=== PATIENT | female | born 1965 | race Caucasian/White ===

== ENCOUNTER → 2018-03-25 09:36 | Outpatient (CLI) | payer SELFPAY ==
--- NOTE | 2018-03-25 09:39 | DI.US.S_ITS ---
PROCEDURE: US ABDOMEN COMPLETE INDICATIONS: RUQ pain TECHNIQUE: Real-time scanning was performed of the abdominal and retroperitoneal organs, with image documentation. COMPARISON: None. FINDINGS: Liver: Liver is normal in size and homogeneous in echotexture. Gallbladder: Gallbladder is unremarkable. Wall thickness is within normal limits. Biliary ducts: Intrahepatic bile ducts are non-dilated. Extrahepatic bile duct caliber measures 6 mm. Normal is 6-7 mm or less in diameter, or 10 mm or less post-cholecystectomy. Pancreas: Not well-seen. Spleen: Spleen is normal in size and homogeneous in echotexture. Kidneys: Kidneys are normal in size and echotexture. Right kidney measures 11.1 cm long; left kidney measures 11.7 cm long. No hydronephrosis or nephrolithiasis. No solid masses. Aorta: Visualized aorta is normal in caliber at less than 3 cm. Iliacs: Proximal common iliac arteries are normal in caliber at less than 2.5 cm. IVC: Intrahepatic inferior vena cava is patent. Miscellaneous: No free abdominal fluid. IMPRESSION: 1. Unremarkable exam. Dictated by: Rosalina Billings M.D. on 03/25/2018 at 13:53 Approved by: Rosalina Billings M.D. on 03/25/2018 at 13:54
--- NOTE | 2018-03-25 09:39 | DI.RAD.S_ITS ---
PROCEDURE: XR KNEE LT 3V INDICATIONS: 52 year-old female with left knee pain. TECHNIQUE: 3 views of the knee were acquired. COMPARISON: None. FINDINGS: Bones: No fractures or dislocations. There is mild medial left knee joint degenerative narrowing. No suspicious bony lesions. Soft tissues: There is small joint effusion. No suspicious soft tissue calcifications. IMPRESSION: Mild medial left knee joint degeneration, as well as nonspecific small left knee joint effusion. Dictated by: Hardy Camarillo M.D. on 03/25/2018 at 10:01 Approved by: Hardy Camarillo M.D. on 03/25/2018 at 10:02
== END ==
PROVIDERS: PCP Physician Assistant; Visit Provider Physician Assistant
DX: R10.11 Right upper quadrant pain (principal); M17.12 Unilateral primary osteoarthritis, left knee; M25.562 Pain in left knee; M25.462 Effusion, left knee
CPT/HCPCS: 73562; 76700

== ENCOUNTER → 2018-09-27 15:49 | Outpatient (CLI) | payer OTHER, SELFPAY ==
[2018-09-27 16:47] LABS: Hemoglobin 11.2 g/dL (12.0-16.0)
[2018-09-27 16:57] LABS: HEMOLYSIS < 15 (0-50); Iron 32 ug/dL (37-170)
[2018-09-27 17:08] LABS: Percent Iron Saturation 7 % (15-50); Total Iron Binding Capacity 455 ug/dL (265-497); Transferrin 388 mg/dL (206-381)
[2018-09-27 17:34] LABS: Ferritin 5.5 ng/mL (11.1-264)
== END ==
PROVIDERS: PCP Physician Assistant; Visit Provider Physician Assistant
DX: D50.9 Iron deficiency anemia, unspecified (principal)
CPT/HCPCS: 36415; 82728; 83540; 83550; 85014; 85018

== ENCOUNTER → 2018-10-11 14:30 | Outpatient (CLI) | payer OTHER, SELFPAY ==
--- NOTE | 2018-10-11 14:35 | DI.RAD.S_ITS ---
PROCEDURE: XR LUMBAR SPINE MIN 4V INDICATIONS: Parasthesias of legs and arms;neck back pain TECHNIQUE: 5 views of the lumbar spine acquired. COMPARISON: None. FINDINGS: Bones: No fracture or focal osseous destruction. Diffuse endplate spurring and sclerosis. Grade 1 retrolisthesis of L1 on L2 and L2 on L3. Grade 1 anterolisthesis of L4 and L5. This appears grossly unchanged with lateral flexion and extension views. Diffuse facet arthropathy. Moderate narrowing of the L1-L2, and L5-S1 disc space and mild narrowing of the remaining lumbar disc spaces. Minimal dextrocurvature Soft tissues: Overlying bowel gas pattern is normal. No suspicious soft tissue calcifications. IMPRESSION: Multilevel lumbar disc degeneration. Most pronounced at L1-L2 and L5-S1 Spondylolistheses as above. No definite evidence of abnormal motion with flexion and extension lateral views Dictated by: Jacky Bell M.D. on 10/11/2018 at 16:43 Approved by: Jacky Bell M.D. on 10/11/2018 at 16:45
--- NOTE | 2018-10-11 14:35 | DI.RAD.S_ITS ---
PROCEDURE: XR CERVICAL SPINE 2V OR 3V INDICATIONS: Parasthesias of legs and arms;neck, back pain TECHNIQUE: 3 view(s) of the cervical spine were acquired. COMPARISON: None. FINDINGS: Bones: No fractures or dislocations to the C7 level. The lateral masses of C1 appear intact on the odontoid view. No suspicious bony lesions. Diffuse endplate spurring and sclerosis. Straightening of the normal cervical lordosis. Diffuse facet arthropathy. Moderate narrowing of the disc spaces from the level of C4-C7. Mild levocurvature Soft tissues: No prevertebral soft tissue swelling. IMPRESSION: Mild levocurvature. Moderate multilevel cervical disc degeneration from C4-C7. Diffuse facet arthropathy. Straightening of the normal cervical lordosis. Dictated by: Jacky Bell M.D. on 10/11/2018 at 16:42 Approved by: Jacky Bell M.D. on 10/11/2018 at 16:43
== END ==
PROVIDERS: Family Provider Physician Assistant; PCP Physician Assistant; Visit Provider Physician Assistant
DX: R29.898 Other symptoms and signs involving the musculoskeletal system (principal); R20.2 Paresthesia of skin; M50.321 Other cervical disc degeneration at C4-C5 level; M47.812 Spondylosis without myelopathy or radiculopathy, cervical region; M51.36 Other intervertebral disc degeneration, lumbar region; M51.37 Other intervertebral disc degeneration, lumbosacral region; M43.16 Spondylolisthesis, lumbar region
CPT/HCPCS: 72040; 72110

== ENCOUNTER → 2019-03-29 10:29 | Outpatient (CLI) | payer OTHER, SELFPAY ==
[2019-03-29 11:24] LABS: Hematocrit 40.8 % (36-46); Hemoglobin 13.4 g/dL (12.0-16.0)
[2019-03-29 11:56] LABS: Alanine Aminotransferase 22 IU/L (9-52); Albumin Globulin Ratio 1.2 (1.0-2.8); Alkaline Phosphatase 69 U/L (38-126); Aspartate Aminotransferase 27 IU/L (14-36); BUN Creatinine Ratio 12.5 (6-22); Bilirubin Total 0.7 mg/dL (0.2-1.3); Blood Urea Nitrogen 10 mg/dL (7-17); Calcium 9.5 mg/dL (8.4-10.2); Carbon Dioxide 27 mmol/L (22-32); Chloride 102 mmol/L (98-107); Cholesterol 187 mg/dL (140-199); Estimated Glomerular Filt Rate > 60.0 mL/min (>60); Globulin 3.4 g/dL (1.7-4.1); Glucose 100 mg/dL (70-100); HDL Cholesterol 50 mg/dL (40-60); HEMOLYSIS < 15 (0-50); Iron 43 ug/dL (37-170); LDL Cholesterol Calculated 118 mg/dL (<100); Potassium 4.5 mmol/L (3.4-5.1); Sodium 137 mmol/L (137-145); Total Protein 7.4 g/dL (6.3-8.2); Triglycerides 96 mg/dL (35-150)
[2019-03-29 12:06] LABS: Percent Iron Saturation 9 % (15-50); Total Iron Binding Capacity 458 ug/dL (265-497); Transferrin 351 mg/dL (206-381)
[2019-03-29 12:31] LABS: Ferritin 7.8 ng/mL (11.1-264)
== END ==
PROVIDERS: Family Provider Physician Assistant; PCP Physician Assistant; Visit Provider Physician Assistant
DX: D50.0 Iron deficiency anemia secondary to blood loss (chronic) (principal); N92.0 Excessive and frequent menstruation with regular cycle; R53.83 Other fatigue; Z13.220 Encounter for screening for lipoid disorders; Z13.6 Encounter for screening for cardiovascular disorders
CPT/HCPCS: 36415; 80053; 80061; 82728; 83540; 83550; 85014; 85018

== ENCOUNTER → 2019-06-20 12:16 | Outpatient (CLI) | payer OTHER, SELFPAY ==
--- NOTE | 2019-06-20 12:19 | DI.MG.S_ITS ---
BILATERAL DIGITAL SCREENING MAMMOGRAM 3D/2D WITH CAD: 06/20/2019 CLINICAL: Routine screening. Family history of breast cancer. Comparison is made to exams dated: 06/29/2017 mammogram, 03/21/2014 mammogram, and 01/18/2013 mammogram - [facility]. There are scattered fibroglandular elements in both breasts. Current study was also evaluated with a Computer Aided Detection (CAD) system. No significant masses, calcifications, or other findings are seen in either breast. There has been no significant interval change. IMPRESSION: NEGATIVE There is no mammographic evidence of malignancy. A 1 year screening mammogram is recommended. This exam was interpreted at Station ID: [id number]. NOTE: For mammograms, a report in lay terms will be sent to the patient. Approximately 15% of breast malignancies will not be visualized mammographically. In the management of a palpable breast mass, a negative mammogram must not discourage biopsy of a clinically suspicious lesion. Electronically Signed By: Bola gonsales/jesu:06/20/2019 16:19:28 letter sent: Normal Exam ACR BI-RADS Category 1: Negative 3341F
== END ==
PROVIDERS: PCP Physician Assistant; Visit Provider Physician Assistant
DX: Z12.39 Encounter for other screening for malignant neoplasm of breast (principal); Z80.3 Family history of malignant neoplasm of breast
CPT/HCPCS: 77063; 77067

== ENCOUNTER → 2020-09-03 12:12 | Outpatient (CLI) | payer OTHER, SELFPAY ==
--- NOTE | 2020-09-03 12:15 | DI.RAD.S_ITS ---
PROCEDURE: XR KNEE RT 3V INDICATIONS: right knee pain TECHNIQUE: 3 views of the knee were acquired. COMPARISON: None. FINDINGS: Bones: No fractures or dislocations. No suspicious bony lesions. Soft tissues: Small joint effusion. No suspicious soft tissue calcifications. IMPRESSION: Small knee joint effusion; otherwise no definite radiographic abnormality. If pain persists with conservative management, consider cross sectional imaging such as CT or MRI for further assessment. Dictated by: Hernan Hernandez [facility] Interpreted: Rosalina Billings MD on 09/03/2020 at 16:47 Approved by: Rosalina Billings M.D. on 09/03/2020 at 16:58
--- NOTE | 2020-09-03 12:15 | DI.US.S_ITS ---
PROCEDURE: US EXTREMITY NONVASC LOWER RT INDICATIONS: posterior knee stiffness; feels a bulb/something TECHNIQUE: Real-time scanning was performed of the right lower extremity, with image documentation. COMPARISON: None. FINDINGS: 4.7 x 2.5 x 2.1 centimeter cyst noted in the right popliteal fossa compatible with popliteal cyst. IMPRESSION: Right popliteal cyst. Dictated by: Renetta Phan MD, PhD on 09/03/2020 at 15:53 Approved by: Renetta Phan MD, PhD on 09/03/2020 at 15:53
== END ==
PROVIDERS: PCP Registered Nurse; Referring Provider Registered Nurse; Visit Provider Registered Nurse
DX: M25.661 Stiffness of right knee, not elsewhere classified (principal); M71.21 Synovial cyst of popliteal space [Baker], right knee; M25.461 Effusion, right knee
CPT/HCPCS: 73562; 76882

== ENCOUNTER → 2020-09-25 12:49 | Outpatient (CLI) | payer OTHER, SELFPAY ==
--- NOTE | 2020-09-25 12:50 | DI.US.S_ITS ---
PROCEDURE: US PERIPH VENOUS LOW EXTREM RT INDICATIONS: swelling of right lower ext. TECHNIQUE: Real-time imaging, as well as color and pulse Doppler interrogation, were performed of the lower extremity deep veins from the inguinal ligament to the popliteal fossa. COMPARISON: [facility], EXTREMITY NONVASC LOWER RT, 09/03/2020, 12:38. FINDINGS: The common femoral, femoral and popliteal veins are normally compressible, and free of intraluminal thrombus. Color and pulse Doppler demonstrate normal phasic intraluminal flow. There is normal augmentation response to distal compression maneuver. A popliteal cyst is again seen measuring 5.3 x 2 x 2.7 cm, which previously measured 4.7 x 2.5 x 2.1 cm. No abnormal vascularity can be seen of the cyst. IMPRESSION: Negative for deep venous thrombosis. Popliteal cyst again seen, which measures slightly larger on the current study than on the prior. Dictated by: Sage Shankar M.D. on 09/25/2020 at 12:35 Approved by: Sage Shankar M.D. on 09/25/2020 at 12:36
== END ==
PROVIDERS: PCP Registered Nurse; Referring Provider Registered Nurse; Visit Provider Registered Nurse
DX: M79.89 Other specified soft tissue disorders (principal); M71.21 Synovial cyst of popliteal space [Baker], right knee
CPT/HCPCS: 93971

== ENCOUNTER 2020-09-28 12:12 | Emergency (ER) | payer OTHER, SELFPAY ==
[2020-09-28 12:30] VITALS: BP 152/69; PULSE 78; RESP 17; TEMP 36.8; O2SAT 97; BMI 33.0
--- NOTE | 2020-09-28 12:43 | ED.EXTPRO ---
HPI - Extremity Problem <ANDREW Benjamin - Last Filed: 09/28/20 21:44> General Chief complaint: Extremity Problem,Nontraumatic Stated complaint: Rt leg swollen Time Seen by Provider: 09/28/20 12:22 Source: patient Mode of arrival: Ambulatory Limitations: no limitations History of Present Illness HPI Narrative: This is a 55 year female, nonsmoker, who has past medical history significant for depression, anxiety and Reina's cyst on right leg presents to ED with chief complain of discoloration and bruise on right lower extremity, swelling and discomfort. Patient recently had ultra sound test done on right extreme lower to rule out DVT 3 days ago indicating slightly increased Reina's cyst measuring 5.3 x 2 x 2.7 cm. Patient also had x-ray test and ultrasound test done a month prior to this indicating Reina's cyst measuring 4.7 x 2.5 x 2.1 cm and no other acute findings. Patient reports the swelling has improved and compartment feels softer but swelling has been moving down to lower leg. Patient woke up this morning to take a shower and look at her legs and had light yellowish discoloration in right lower leg with ecchymotic bruise on right inner ankle. She denies known trauma or injuries but states her big dog stepped on her but unsure where he landed. She also has some superficial varicose vein which was more prominent a couple of days ago with swelling in her calf region. Patient denies chest pain, difficulty breathing, fever, chills, nausea or vomiting. Patient denies warmth or redness to affected leg. Patient denies history of heart failure, blood clots, or easy bruising. Patient denies recent surgery, prolonged bed rest, cancer or tumor, using esterase in hormone replacement. Related Data Previous Rx's Medication Instructions Recorded sertraline 50 mg tablet 50 mg PO DAILY #90 tab 12/06/19 cetirizine 10 mg tablet 10 mg PO DAILY #30 tab 08/17/20 fluticasone propionate 50 2 spray NASAL DAILY #15.8 ml 08/17/20 mcg/actuation nasal spray,suspension ibuprofen 400 mg tablet 400 mg PO Q4-6H PRN 30 Days #120 09/27/20 tab Allergies Allergy/AdvReac Type Severity Reaction Status Date / Time Sulfa (Sulfonamide AdvReac Mild HYPER, Verified 09/28/20 12:44 Antibiotics) UNABLE TO SLEEP, ON EDGE Review of Systems <ANDREW Benjamin - Last Filed: 09/28/20 21:44> Review of Systems Narrative: General: Denies fever, chills, fatigue, malaise, sweats. Respiratory: Denies dyspnea, cough, wheezing, hemoptysis, sputum. Cardiovascular: Denies chest pain, palpitations, orthopnea, edema. Gastrointestinal: Denies nausea, vomiting, abdominal pain, diarrhea, constipation, melena. Musculoskeletal: See HPI Skin: See HPI Neurologic: Denies weakness, headache, numbness, change in speech, confusion, seizures, incoordination. Psychiatric: No concerning psychosocial issues. Patient History <ANDREW Benjamin - Last Filed: 09/28/20 21:44> Medical History (Updated 09/28/20 @ 13:56 by ANDREW Benjamin) Depression with anxiety (Unknown) Fractured tooth Hyperlipidemia (Unknown) Osteoarthritis of knee Family History Mother Alzheimer's dementia Sister Age: 70 Breast cancer Alzheimer's dementia Social History Smoking Status: Never smoker second hand exposure: No alcohol intake: current (wine or mixed drinks once a month. It's more of a social thing.) substance use type: does not use Smoking Status: Never smoker Exam <ANDREW Benjamin - Last Filed: 09/28/20 21:44> Narrative Exam Narrative: GEN: Alert, oriented x 3, well appearing and nourished, and in no acute distress. Head: Normal cephalic, atraumatic. No scalp or temporal tenderness, palpable mass or rash. EYES: Pupils are equal, round, and reactive to light and accommodation. Extraocular muscles are intact bilaterally. There is no subconjunctival hemorrhage, exudate and sclera non-icteric. ENT: Hearing grossly intact. Airway patent. Neck: Trachea in midline. No JVD, non-tender without lymphadenopathy. No masses or thyroid megaly. Supple, non-tender and no meningeal signs. CARDIAC: Normal regular rate and rhythm without murmurs, gallops, or rubs. No chest wall tenderness. No peripheral edema, cyanosis or pallor. Capillary refill is less than 2 seconds. RESPIRATORY: Lungs are clear to auscultate bilaterally. No cough, wheezes, rales, or rhonchi. No stridor, respiratory distress, increase work of breathing, or accessary muscle used. ABD: Abdomen soft, nontender and non-distended. No guarding or rebound tenderness to palpate. Bowel sounds are normal in all 4 quadrants. There is no palpable masses or organomegaly. EXT: Light yellow discoloration extending right lower extremity below knee and small area of ecchymotic bruise in right inner ankle. No erythema, hot to touch on right lower leg. Slight tenderness to palpate right calf. No significant swelling and calf compartments soft to palpate. Intact sensation, mobility, brisk cap refill, pedal pulse distal to right foot. Full painless ROM of all extremities. No effusion, warmth, tenderness to palpate on right knee. SKIN: See extremity. Warm, dry, normal color for patient. No erythema, lesions or rash over visible areas. NEUROLOGICAL: Alert and oriented to place, time and person. Sensation and motor function intact bilaterally. No facial droops, dysphasia. PSYCHIATRIC: Good judgement and reason, without hallucinations, abnormal affect or abnormal behaviors during the examination. Patient is not suicidal. Initial Vital Signs Initial Vital Signs: Vital Signs Temperature 98.2 F 09/28/20 12:30 Pulse Rate 78 09/28/20 12:30 Respiratory Rate 17 09/28/20 12:30 Blood Pressure 152/69 H 09/28/20 12:30 Pulse Oximetry 97 09/28/20 12:30 <Sadia Biggs MD - Last Filed: 10/05/20 07:23> Initial Vital Signs Initial Vital Signs: Vital Signs Temperature 98.2 F 09/28/20 12:30 Pulse Rate 78 09/28/20 12:30 Respiratory Rate 17 09/28/20 12:30 Blood Pressure 152/69 H 09/28/20 12:30 Pulse Oximetry 97 09/28/20 12:30 Scores <ANDREW Benjamin - Last Filed: 09/28/20 21:44> GCS [place] coma scale eye opening: Spontaneous [place] coma scale verbal response: Orientated [place] coma scale motor response: Obey commands [place] coma scale total score: 15 Wells' Criteria for DVT Active Cancer (Treatment within 6 months): No Bedridden recently >3 days or major surgery within 4 weeks: No Calf Swelling >3cm compared to other leg: No Collateral (nonvericose) superficial veins present: No Entire leg swollen: No Localized tenderness along the deep vein system: Yes Pitting edema, confined to symtomatic leg: Yes (+1) Paralysis, paresis, or recent plaster immobilization of ext: No Previously documented DVT: No Alternative dx to DVT as likely or more likely: No Wells' criteria for DVT: 2 Course <ANDREW Benjamin - Last Filed: 09/28/20 21:44> Orders Ordered: ED Orders 09/28/20 13:10 Basic Metabolic Panel Stat Complete Blood Count AUTO DIFF Stat D Dimer Stat Vital Signs Vital signs: Vital Signs - 8 hr 09/28/20 14:03 Pulse Rate 65 Respiratory Rate 16 Blood Pressure 119/56 L Pulse Oximetry 96 <Sadia Biggs MD - Last Filed: 10/05/20 07:23> Orders Ordered: ED Orders 09/28/20 13:10 Basic Metabolic Panel Stat Complete Blood Count AUTO DIFF Stat D Dimer Stat Vital Signs Vital signs: Vital Signs - 8 hr 09/28/20 14:03 Pulse Rate 65 Respiratory Rate 16 Blood Pressure 119/56 L Pulse Oximetry 96 MDM - Extremity (Nontraumatic) <DEVANTE BenjaminP - Last Filed: 09/28/20 21:44> Differential Diagnosis Differential diagnosis: Likely cellulitis, superficial thrombophlebitis, deep vein thrombosis of lower extremity and other (CHF, ruptured reina's cyst) Medical Records Attestation: I reviewed the patient's medical records. Lab Data Attestation: I reviewed the patient's lab results. Result diagrams: 09/28/20 13:10 09/28/20 13:10 Labs: Lab Results 09/28/20 09/28/20 09/28/20 Range/Units 13:10 13:10 13:10 WBC 7.6 (4.5-11.0) X10^3/uL RBC 4.99 (4.0-5.2) X10^6/uL Hgb 13.0 (12.0-16.0) g/dL Hct 39.7 (36-46) % MCV 79.6 L (80-100) fL MCH 26.0 (26-34) PG MCHC 32.7 (30-36) % RDW 14.7 (11.6-14.8) % Plt Count 272 (150-400) X10^3/uL Neut % (Auto) 58.9 (50-75) % Lymph % (Auto) 30.4 (25-40) % Bacon % (Auto) 7.5 (3-14) % Eos % (Auto) 2.1 (2-4) % Baso % (Auto) 1.1 (0-2) % Neut # (Auto) 4500 (4843-0820) /uL Lymph # (Auto) 2300 (5134-7105) /uL Bacon # (Auto) 600 (0-900) /uL Eos # (Auto) 200 (0-450) /uL Baso # (Auto) 100 (0-100) /uL D-Dimer 277 H (<230) ng/mL Sodium 135 L (137-145) mmol/L Potassium 3.6 (3.4-5.1) mmol/L Chloride 103 (98-107) mmol/L Carbon Dioxide 29 (22-32) mmol/L BUN 9 (7-17) mg/dL Creatinine 0.79 (0.52-1.04) mg/dL Estimated GFR > 60.0 (>60) mL/min BUN/Creatinine Ratio 11.4 (6-22) Glucose 99 (70-100) mg/dL Calcium 9.1 (8.4-10.2) mg/dL [facility] Narrative Medical decision making narrative: This is a 55 year female who has known prominent Reina's cyst on right knee according to 2 ultrasound tests done on 09/03/20 and 3 days ago presents to ED with chief complain of yellowish discoloration and small bruise on affected leg. Patient is afebrile, nontoxic appearing and with normal limits of heart rate with blood pressure. Leg pain is not worsening but swelling to affected leg has improved but now it has moved to lower leg. Wells criteria for DVT score is 2. Given the the patient had ultrasound test done 3 days ago with negative result, elected to screen patient with D-dimer, CBC and platelet count checks with basic chemistry. Normal platelet counts of 272. D-dimer is negative for age adjusted as 277. No repeat ultrasound test done at this time. The yellow discoloration and ankle bruise could be from Reina's cyst rupture vs. Varicose vein rupture. Patient informed discoloration male last for few weeks to completely resolve. Patient advised to follow-up with primary care physician to discuss about work release. Advised to use jay wrap as needed for support and return precautions discussed with patient. <Sadia Biggs MD - Last Filed: 10/05/20 07:23> Lab Data Labs: Lab Results 09/28/20 09/28/20 09/28/20 Range/Units 13:10 13:10 13:10 WBC 7.6 (4.5-11.0) X10^3/uL RBC 4.99 (4.0-5.2) X10^6/uL Hgb 13.0 (12.0-16.0) g/dL Hct 39.7 (36-46) % MCV 79.6 L (80-100) fL MCH 26.0 (26-34) PG MCHC 32.7 (30-36) % RDW 14.7 (11.6-14.8) % Plt Count 272 (150-400) X10^3/uL Neut % (Auto) 58.9 (50-75) % Lymph % (Auto) 30.4 (25-40) % Bacon % (Auto) 7.5 (3-14) % Eos % (Auto) 2.1 (2-4) % Baso % (Auto) 1.1 (0-2) % Neut # (Auto) 4500 (5201-5795) /uL Lymph # (Auto) 2300 (3314-7127) /uL Bacon # (Auto) 600 (0-900) /uL Eos # (Auto) 200 (0-450) /uL Baso # (Auto) 100 (0-100) /uL D-Dimer 277 H (<230) ng/mL Sodium 135 L (137-145) mmol/L Potassium 3.6 (3.4-5.1) mmol/L Chloride 103 (98-107) mmol/L Carbon Dioxide 29 (22-32) mmol/L BUN 9 (7-17) mg/dL Creatinine 0.79 (0.52-1.04) mg/dL Estimated GFR > 60.0 (>60) mL/min BUN/Creatinine Ratio 11.4 (6-22) Glucose 99 (70-100) mg/dL Calcium 9.1 (8.4-10.2) mg/dL Discharge Plan Departure Patient Disposition: Home Clinical Impression: Reina's cyst of knee Qualifiers: Laterality: right Qualified Code(s): M71.21 - Synovial cyst of popliteal space [Reina], right knee Superficial bruising of lower leg Qualifiers: Encounter type: initial encounter Laterality: right Qualified Code(s): S80.11XA - Contusion of right lower leg, initial encounter Instructions: DI for Reina Cyst, DI for Leg Pain Activity Restrictions/Additional Instructions: You have been diagnosed with [known right knee Reina's cyst per ultrasound on 09/25/20 and light superficial bruise on right lower extremity. The ecchymosis, improved swelling might've from ruptured Reina's cyst. Blood test and physical exam are not consistent with blood clots, cellulitis, abnormal blood clotting factors.]. What to do: *Take your medications as directed. You can take resv-[id number]-[id number] Tylenol and or Motrin as needed for discomfort. You can use Jay wrap as needed for comfort. *Follow up with your primary care provider in 2-3 days, call for an appointment. Let them know you were seen in the ED and that we asked you to be seen in follow up. *Return to ED if you have any new, worsening, or concerning symptoms, such as [worsening pain, tingling/numbness/weakness to affected leg, worsening redness/warmth/swelling to affected leg, chest pain, breathing difficulty, fever, or any acute concerns]. Prescriptions: No Action fluticasone propionate 50 mcg/actuation spray,suspension 2 spray NASAL DAILY Qty: 15.8 RF: 0 cetirizine [Allergy Relief (cetirizine)] 10 mg tablet 10 mg PO DAILY Qty: 30 RF: 0 ibuprofen 400 mg tablet 400 mg PO Q4-6H PRN (Reason: Reina cyst) 30 Days Qty: 120 RF: 0 sertraline 50 mg tablet 50 mg PO DAILY Qty: 90 RF: 3 Referrals: Eric Brunner ARNP [Primary Care Provider] - <Sadia Biggs MD - Last Filed: 10/05/20 07:23> Cosign ED Attending Cosignature Attestation: I was immediately available in the department for consultation throughout this patient's visit. I agree with documentation as above. Sadia Bigsg MD
[2020-09-28 13:31] LABS: BUN Creatinine Ratio 11.4 (6-22); Blood Urea Nitrogen 9 mg/dL (7-17); Calcium 9.1 mg/dL (8.4-10.2); Carbon Dioxide 29 mmol/L (22-32); Chloride 103 mmol/L (98-107); D Dimer 277 ng/mL (<230); Estimated Glomerular Filt Rate > 60.0 mL/min (>60); Glucose 99 mg/dL (70-100); HEMOLYSIS < 15 (0-50); Potassium 3.6 mmol/L (3.4-5.1); Sodium 135 mmol/L (137-145)
[2020-09-28 13:33] LABS: Add Manual Diff / Slide Review NO; Basophils Absolute Auto 100 /uL (0-100); Basophils Percent Auto 1.1 % (0-2); Eosinophils Absolute Auto 200 /uL (0-450); Eosinophils Percent Auto 2.1 % (2-4); Hematocrit 39.7 % (36-46); Lymphocytes Absolute Auto 2300 /uL (1100-4500); Lymphocytes Percent Auto 30.4 % (25-40); Mean Corpuscular HGB Conc 32.7 % (30-36); Mean Corpuscular Volume 79.6 fL (80-100); Monocytes Absolute Auto 600 /uL (0-900); Monocytes Percent Auto 7.5 % (3-14); Neutrophils Absolute Auto 4500 /uL (1500-7000); Neutrophils Percent Auto 58.9 % (50-75); Platelet Count 272 X10^3/uL (150-400); Red Blood Cell Count 4.99 X10^6/uL (4.0-5.2); Red Cell Distribution Width 14.7 % (11.6-14.8); White Blood Cell Count 7.6 X10^3/uL (4.5-11.0)
[2020-09-28 14:03] VITALS: BP 119/56; PULSE 65; RESP 16; O2SAT 96
== END 2020-09-28 14:04 | disposition home or self-care (01) ==
PROVIDERS: Emergency Provider Nurse Practitioner Family; PCP Registered Nurse
DX: M71.21 Synovial cyst of popliteal space [Baker], right knee (principal); S80.11XA Contusion of right lower leg, initial encounter; F41.9 Anxiety disorder, unspecified
CPT/HCPCS: 36415; 80048; 85025; 85379; 99283

== ENCOUNTER → 2021-01-18 14:12 | Outpatient (CLI) | payer OTHER, SELFPAY ==
[2021-01-18 15:01] LABS: COVID19 -Nasal RAPID Negative (Negative)
== END ==
PROVIDERS: PCP Registered Nurse; Visit Provider Physician Assistant
DX: Z20.822 Contact with and (suspected) exposure to COVID-19 (principal)
CPT/HCPCS: 87635

== ENCOUNTER → 2021-06-02 11:42 | Outpatient (CLI) | payer OTHER, SELFPAY ==
[2021-06-02 15:44] LABS: COVID19 -Nasal RAPID Negative (Negative)
== END ==
PROVIDERS: PCP Registered Nurse; Visit Provider Nurse Practitioner
DX: Z20.822 Contact with and (suspected) exposure to COVID-19 (principal); R11.2 Nausea with vomiting, unspecified; R19.7 Diarrhea, unspecified
CPT/HCPCS: 87635

== ENCOUNTER → 2021-11-04 12:32 | Outpatient (CLI) | payer OTHER, SELFPAY ==
[2021-11-04 16:01] LABS: COVID19 -Nasal RAPID Negative (Negative)
== END ==
PROVIDERS: PCP Registered Nurse; Referring Provider Nurse Practitioner Family; Visit Provider Nurse Practitioner Family
DX: Z20.822 Contact with and (suspected) exposure to COVID-19 (principal); R05.9 Cough, unspecified
CPT/HCPCS: 87635

== ENCOUNTER → 2022-08-06 11:28 | Outpatient (CLI) | payer OTHER, MEDICAID, SELFPAY ==
[2022-08-06 12:38] LABS: Add Manual Diff / Slide Review NO; Basophils Absolute Auto 100 /uL (0-100); Basophils Percent Auto 0.9 % (0-2); Eosinophils Absolute Auto 100 /uL (0-450); Eosinophils Percent Auto 1.9 % (2-4); Hematocrit 41.3 % (36-46); Hemoglobin 14.1 g/dL (12.0-16.0); Lymphocytes Absolute Auto 2300 /uL (1100-4500); Lymphocytes Percent Auto 33.5 % (25-40); Mean Corpuscular HGB Conc 34.1 % (30-36); Mean Corpuscular Hemoglobin 26.7 PG (26-34); Mean Corpuscular Volume 78.2 fL (80-100); Monocytes Absolute Auto 400 /uL (0-900); Neutrophils Absolute Auto 3900 /uL (1500-7000); Neutrophils Percent Auto 57.7 % (50-75); Platelet Count 227 X10^3/uL (150-400); Red Blood Cell Count 5.28 X10^6/uL (4.0-5.2); Red Cell Distribution Width 13.6 % (11.6-14.8); White Blood Cell Count 6.8 X10^3/uL (4.5-11.0)
[2022-08-06 12:44] LABS: Alanine Aminotransferase 17 IU/L (<35); Albumin 4.3 g/dL (3.5-5.0); Albumin Globulin Ratio 1.3 (1.0-2.8); Alkaline Phosphatase 80 U/L (38-126); Aspartate Aminotransferase 25 IU/L (14-36); BUN Creatinine Ratio 11.4 (6-22); Bilirubin Total 0.7 mg/dL (0.2-1.3); Blood Urea Nitrogen 10 mg/dL (7-17); Calcium 9.6 mg/dL (8.4-10.2); Carbon Dioxide 30 mmol/L (22-32); Chloride 99 mmol/L (98-107); Cholesterol 244 mg/dL (140-199); Estimated Glomerular Filt Rate > 60 mL/min (>60); Globulin 3.4 g/dL (1.7-4.1); Glucose 92 mg/dL (70-100); HDL Cholesterol 57 mg/dL (40-60); HEMOLYSIS < 15 (0-50); LDL Cholesterol Calculated 149 mg/dL (<100); Potassium 4.2 mmol/L (3.4-5.1); Sodium 138 mmol/L (137-145); Total Protein 7.7 g/dL (6.3-8.2); Triglycerides 191 mg/dL (35-150)
[2022-08-06 12:55] LABS: Free T3, Triiodothyronine Free 3.71 pg/mL (2.77-5.27); Free T4, Direct Thyroxine 1.04 ng/dL (0.78-2.19)
[2022-08-06 13:09] LABS: Thyroid Stimulating Hormone 2.88 uIU/mL (0.47-4.68)
== END ==
PROVIDERS: PCP Nurse Practitioner; Referring Provider Nurse Practitioner; Visit Provider Nurse Practitioner
DX: Z00.00 Encounter for general adult medical examination without abnormal findings (principal); D50.0 Iron deficiency anemia secondary to blood loss (chronic); F41.8 Other specified anxiety disorders
CPT/HCPCS: 36415; 80053; 80061; 84439; 84443; 84481; 85025

== ENCOUNTER → 2022-08-20 16:25 | Outpatient (CLI) | payer OTHER, MEDICAID, SELFPAY ==
--- NOTE | 2022-08-20 16:29 | DI.MG.S_ITS ---
BILATERAL DIGITAL SCREENING MAMMOGRAM 3D/2D WITH CAD: 08/20/2022 CLINICAL: Routine screening. Family history of breast cancer. Comparison is made to exams dated: 06/20/2019 mammogram, 06/29/2017 mammogram, and 03/21/2014 mammogram - [facility]. Both breasts are almost entirely fatty (category a/<25% glandular tissue). Current study was also evaluated with a Computer Aided Detection (CAD) system. There are benign vascular calcifications in both breasts. No significant masses, calcifications, or other findings are seen in either breast. There has been no significant interval change. IMPRESSION: BENIGN There is no mammographic evidence of malignancy. A 1 year screening mammogram is recommended. Based on the Tyrer Cuzick model (a risk assessment model) the patient's lifetime risk is 10.8% and her 10 year risk is 4.2%. According to the ACR, ACS, and NCCN guidelines, an annual breast MRI exam along with mammogram is recommended if the patient's lifetime risk is 20% or greater. This exam was interpreted at Station ID: [id number]. NOTE: For mammograms, a report in lay terms will be sent to the patient. Approximately 15% of breast malignancies will not be visualized mammographically. In the management of a palpable breast mass, a negative mammogram must not discourage biopsy of a clinically suspicious lesion. Electronically Signed By: Georgiana edwards/jesu:08/21/2022 09:00:50 letter sent: Normal Exam ACR BI-RADS Category 2: Benign Finding(s) 3342F
== END ==
PROVIDERS: PCP Nurse Practitioner; Referring Provider Nurse Practitioner; Visit Provider Nurse Practitioner
DX: Z12.31 Encounter for screening mammogram for malignant neoplasm of breast (principal); Z80.3 Family history of malignant neoplasm of breast
CPT/HCPCS: 77063; 77067

== ENCOUNTER → 2022-10-05 14:05 | Outpatient (CLI) | payer OTHER, MEDICAID, SELFPAY ==
[2022-10-05 18:07] LABS: COVID19 -Nasal RAPID Negative (Negative)
== END ==
PROVIDERS: PCP Nurse Practitioner; Visit Provider Surgery
DX: Z01.812 Encounter for preprocedural laboratory examination (principal); Z20.822 Contact with and (suspected) exposure to COVID-19
CPT/HCPCS: 87635; C9803

== ENCOUNTER 2022-10-06 13:03 | Day surgery (SDC) | payer OTHER, MEDICAID, SELFPAY ==
--- NOTE | 2022-10-06 | PATH_ITS ---
[facility] Accession Number: [id number] . 01 Material submitted: . colon - SIGMOID COLON POLYP . 01 Diagnosis: Sigmoid Colon Polyp, Biopsy: Colonic mucosa with benign lymphoid aggregate. No dysplasia or neoplasia identified. [facility] 10/09/2022 1418 Local . 01 Electronically signed: . Galilea Callejas MD, Pathologist NPI- [id number] . 01 Gross description: . SIGMOID COLON POLYP: Received in formalin are 2 fragment(s) of jaramillo, soft tissue measuring 0.1 x 0.1 x 0.1 cm to 0.4 x 0.2 x 0.2 cm which is bisected and submitted entirely in 1 cassette(s) /MASON 10/07/2022 193 Local . 01 Pathologist provided ICD-10: K63.89 . 01 CPT . 042685 Specimen Comment: A courtesy copy of this report has been sent to [phone] Performed at: 01 [facility] [address] [place] [address] Suite [facility], [place], [place] [id number] MD Bola Bob MD Phone: [phone]
[2022-10-06 13:26] VITALS: BP 176/106; PULSE 75; RESP 18; TEMP 36.7; O2SAT 100; BMI 29.0
--- NOTE | 2022-10-06 13:28 | PM.HP.1 ---
History of Present Illness History of Present Illness Date Patient Seen: 10/06/22 Time Patient Seen: 13:28 Chief complaint: Colonoscopy Narrative: The patient presents for colorectal screening. Ten years ago colonoscopy normal. Unclear whether her father had colon cancer or not.. On further history denies any recent gastrointestinal symptoms. No nausea, vomiting, abdominal pain, loss of appetite, unexplained weight loss, change in bowel habits, diarrhea, constipation, melena, hematochezia, or bright red blood per rectum. Patient History Medical History Depression with anxiety (Unknown) Fractured tooth Hyperlipidemia (Unknown) Osteoarthritis of knee Family & Social History Family History Mother Alzheimer's dementia Sister Age: 72 Breast cancer Alzheimer's dementia Tobacco & Substance use: Smoking Status Never smoker alcohol intake current alcohol intake frequency holiday/special occasion Substance Use Type does not use Meds Home Medications and Allergies Home Medications Medication Instructions Recorded Confirmed Type sertraline 50 mg tablet 50 mg PO DAILY 10/06/22 10/06/22 History Allergies Allergy/AdvReac Type Severity Reaction Status Date / Time Sulfa (Sulfonamide AdvReac Mild HYPER, Verified 10/06/22 13:16 Antibiotics) UNABLE TO SLEEP, ON EDGE Exam Narrative Exam Narrative: General adult woman alert oriented no acute distress Extremities warm well perfused Assessment & Plan Assessment & Plan narrative: The patient requires colorectal screening and colonoscopy is recommended. Technical details were discussed. Risks, benefits, alternatives explained. Risks including but not limited to myocardial infarction, aspiration, bleeding, pain, missed lesion, incomplete examination, need for further radiographic studies, colonic perforation, and need for major abdominal surgery were discussed. All questions were answered to their satisfaction, and they are in agreement with this plan. Time Spent With Patient Critical Care time: I spent a total of [] minutes of critical care time on this patient's care today; this time is exclusive of procedural time.
--- NOTE | 2022-10-06 13:29 | P.OP.COLON_ITS ---
Operative Date/Time/Diagnoses Date of procedure: 10/06/22 Time of procedure: 13:30 Pre-op diagnosis: Colorectal screening Post-op diagnosis: same Procedure & Clinicians Study performed: Colonoscopy and polypectomy Same procedure as scheduled: Yes Indications: Screening Surgeon: Dillan Parra Procedure Notes Procedure in detail: The history and physical was performed/updated and the patient is ASA class is 2. The procedure was discussed in detail with the patient. Potential risks complications including infection, bleeding, missed diagnosis, perforation, need for surgery, and were explained. Their questions were answered and inf ormed consent was obtained. Patient was brought to the procedure room and placed standard monitoring equipment. The patient's vital signs were monitored continuously throughout the entire procedure. Prior to starting time-out was performed. The patient was placed in the left lateral recumbent position. Procedural sedation was administered by anesthesia. Examination began with a thorough inspection of the perianal area there was no evidence of fissures, fistulae, external hemorrhoids or cutaneous malignancy. The colonoscopy scope was then placed into the anal canal and was advanced to the cecum, which was identified by the ileocecal valve, the appendiceal orifice and the confluence of the taenia. The scope was then slowly withdrawn examining colon thoroughly in all directions, irrigating it of any residual stool. FINDINGS 1. Sigmoid. 3mm polyps x 2 removed with biopsy forceps 2. Diverticulosis The patient tolerated the procedure well. They will be discharged once criteria are met. The prep was of good/excellent quality. The withdrawl time was 6 minutes. Specimen(s): other (Sigmoid colonic polyps) Impression: Colonic polyps Post-procedure Recommendations: High fiber diet Plan for aftercare: Follow-up dependent on pathology findings Disposition: same day surgery
[2022-10-06] MEDS: LACTATED RINGERS 1,000 ML 200 ML IV (13:31)
[2022-10-06 13:52] VITALS: BP 123/80; PULSE 68; RESP 16; TEMP 36.5; O2SAT 95
[2022-10-06 13:57] VITALS: BP 112/82; PULSE 67; RESP 13; O2SAT 96
[2022-10-06 14:02] VITALS: BP 117/78; PULSE 71; RESP 10; TEMP 36.6; O2SAT 98
[2022-10-06 14:07] VITALS: BP 140/88; PULSE 69; RESP 13; O2SAT 99
[2022-10-06 14:12] VITALS: BP 144/91; PULSE 64; RESP 13; TEMP 36.5; O2SAT 99
== END 2022-10-06 14:36 | disposition home or self-care (01) ==
PROVIDERS: PCP Nurse Practitioner; Referring Provider Surgery; Visit Provider Surgery
PROC: 0DJD8ZZ Inspection of Lower Intestinal Tract, Via Natural or Artificial Opening Endoscopic (ICD-10-PCS; CPT 45378; principal; 2022-10-06 14:00)
DX: Z12.11 Encounter for screening for malignant neoplasm of colon (principal); K57.30 Diverticulosis of large intestine without perforation or abscess without bleeding
CPT/HCPCS: 45380; J2704; J3010

== ENCOUNTER → 2023-09-01 10:07 | Outpatient (CLI) | payer OTHER, MEDICAID, SELFPAY ==
--- NOTE | 2023-09-01 10:08 | DI.MG.S_ITS ---
BILATERAL DIGITAL SCREENING MAMMOGRAM 3D/2D WITH CAD: 09/01/2023 CLINICAL: Routine screening. Family history of breast cancer. Comparison is made to exams dated: 08/20/2022 mammogram, 06/20/2019 mammogram, 06/29/2017 mammogram, and 07/30/2017 mammogram - [facility]. Both breasts are almost entirely fatty (category a/<25% glandular tissue). Current study was also evaluated with a Computer Aided Detection (CAD) system. There are benign vascular calcifications in both breasts. No significant masses, calcifications, or other findings are seen in either breast. There has been no significant interval change. IMPRESSION: BENIGN There is no mammographic evidence of malignancy. A 1 year screening mammogram is recommended. Based on the Tyrer Cuzick model (a risk assessment model) the patient's lifetime risk is 10.6% and her 10 year risk is 4.3%. According to the ACR, ACS, and NCCN guidelines, an annual breast MRI exam along with mammogram is recommended if the patient's lifetime risk is 20% or greater. This exam was interpreted at Station ID: [id number]. NOTE: For mammograms, a report in lay terms will be sent to the patient. Approximately 15% of breast malignancies will not be visualized mammographically. In the management of a palpable breast mass, a negative mammogram must not discourage biopsy of a clinically suspicious lesion. Electronically Signed By: Juan [email or web address]:09/01/2023 12:08:27 letter sent: Normal Exam ACR BI-RADS Category 2: Benign Finding(s) 3342F
== END ==
PROVIDERS: PCP Nurse Practitioner; Referring Provider Nurse Practitioner; Visit Provider Nurse Practitioner
DX: Z12.31 Encounter for screening mammogram for malignant neoplasm of breast (principal); Z80.3 Family history of malignant neoplasm of breast
CPT/HCPCS: 77063; 77067

== ENCOUNTER → 2023-12-29 15:19 | Outpatient (CLI) | payer OTHER, MEDICAID, SELFPAY ==
[2023-12-29 17:42] LABS: Alanine Aminotransferase 27 IU/L (<35); Albumin Globulin Ratio 1.1 (1.0-2.8); Alkaline Phosphatase 72 U/L (38-126); Aspartate Aminotransferase 37 IU/L (14-36); BUN Creatinine Ratio 14.3 (6-22); Bilirubin Total 0.8 mg/dL (0.2-1.3); Blood Urea Nitrogen 11 mg/dL (7-17); Carbon Dioxide 28 mmol/L (22-32); Chloride 105 mmol/L (98-107); Cholesterol 228 mg/dL (140-199); Estimated Glomerular Filt Rate > 60 mL/min (>60); Globulin 3.6 g/dL (1.7-4.1); Glucose 83 mg/dL (80-110); HDL Cholesterol 58 mg/dL (40-60); HEMOLYSIS < 15 (0-50); LDL Cholesterol Calculated 138 mg/dL (<100); Potassium 3.8 mmol/L (3.4-5.1); Sodium 140 mmol/L (137-145); Total Protein 7.6 g/dL (6.3-8.2); Triglycerides 162 mg/dL (35-150)
[2023-12-29 17:49] LABS: Hematocrit 38.6 % (36-46); Mean Corpuscular HGB Conc 33.5 % (30-36); Mean Corpuscular Hemoglobin 26.7 PG (26-34); Mean Corpuscular Volume 79.7 fL (80-100); Platelet Count 219 X10^3/uL (150-400); Red Blood Cell Count 4.84 X10^6/uL (4.0-5.2); Red Cell Distribution Width 13.6 % (11.6-14.8); White Blood Cell Count 5.1 X10^3/uL (4.5-11.0)
[2023-12-29 18:09] LABS: Free T3, Triiodothyronine Free 3.97 pg/mL (2.77-5.27); Free T4, Direct Thyroxine 0.86 ng/dL (0.78-2.19)
[2023-12-29 18:23] LABS: Thyroid Stimulating Hormone 2.46 uIU/mL (0.47-4.68)
[2023-12-29 19:41] LABS: Neutrophils Absolute Manual 2448 /uL (3000-5900); Total Cells Counted 100
[2023-12-29 19:42] LABS: RBC Morphology Normal Morphology
[2023-12-30 16:39] LABS: HIV 1 & 2 Ab/Ag 4th Gen Combo NEGATIVE (NEGATIVE); Hep C Virus Ab w/Reflex Quant NEGATIVE s/c (NEGATIVE)
== END ==
LOC: LAB 15:20
PROVIDERS: PCP Nurse Practitioner; Referring Provider Nurse Practitioner; Visit Provider Nurse Practitioner
DX: Z00.00 Encounter for general adult medical examination without abnormal findings (principal); Z11.4 Encounter for screening for human immunodeficiency virus [HIV]; Z11.59 Encounter for screening for other viral diseases
CPT/HCPCS: 36415; 80053; 80061; 84439; 84443; 84481; 85025; 86803; 87389

== ENCOUNTER → 2024-06-23 12:29 | Outpatient (CLI) | payer OTHER, MEDICAID, SELFPAY ==
[2024-06-23 13:30] LABS: Alanine Aminotransferase 18 IU/L (<35); Albumin 4.2 g/dL (3.5-5.0); Albumin Globulin Ratio 1.1 (1.0-2.8); Alkaline Phosphatase 89 U/L (38-126); Aspartate Aminotransferase 29 IU/L (14-36); Bilirubin Total 0.6 mg/dL (0.2-1.3); Blood Urea Nitrogen 10 mg/dL (7-17); Calcium 9.2 mg/dL (8.4-10.2); Carbon Dioxide 25 mmol/L (22-32); Chloride 103 mmol/L (98-107); Estimated Glomerular Filt Rate > 60 mL/min (>60); Globulin 3.9 g/dL (1.7-4.1); Glucose 100 mg/dL (80-110); HEMOLYSIS < 15 (0-50); Potassium 3.7 mmol/L (3.4-5.1); Sodium 136 mmol/L (137-145); Total Protein 8.1 g/dL (6.3-8.2)
== END ==
LOC: LAB 12:29
PROVIDERS: PCP Nurse Practitioner; Referring Provider Nurse Practitioner; Visit Provider Nurse Practitioner
DX: R79.89 Other specified abnormal findings of blood chemistry (principal)
CPT/HCPCS: 36415; 80053

== ENCOUNTER → 2024-06-27 17:47 | Outpatient (ROUT) | payer OTHER, MEDICAID, SELFPAY | PROVIDERS: PCP Nurse Practitioner; Visit Provider Nurse Practitioner | DX: N89.8 Other specified noninflammatory disorders of vagina (principal) | CPT/HCPCS: 87070; 87205 ==

== ENCOUNTER → 2025-02-23 14:17 | Outpatient (CLI) | payer OTHER, SELFPAY ==
[2025-02-23 15:15] LABS: Hematocrit 42.3 % (36-46); Hemoglobin 14.6 g/dL (12.0-16.0); Mean Corpuscular HGB Conc 34.6 % (30-36); Mean Corpuscular Hemoglobin 27.6 PG (26-34); Mean Corpuscular Volume 79.7 fL (80-100); Platelet Count 277 X10^3/uL (150-400); Red Cell Distribution Width 13.3 % (11.6-14.8)
[2025-02-23 15:34] LABS: Alanine Aminotransferase 18 IU/L (<35); Albumin 4.4 g/dL (3.5-5.0); Albumin Globulin Ratio 1.4 (1.0-2.8); Alkaline Phosphatase 80 U/L (38-126); Aspartate Aminotransferase 29 IU/L (14-36); BUN Creatinine Ratio 13.8 (6-22); Bilirubin Total 0.7 mg/dL (0.2-1.3); Blood Urea Nitrogen 13 mg/dL (7-17); Calcium 9.7 mg/dL (8.4-10.2); Carbon Dioxide 29 mmol/L (22-32); Chloride 102 mmol/L (98-107); Cholesterol 269 mg/dL (140-199); Estimated Glomerular Filt Rate > 60 mL/min (>60); Globulin 3.2 g/dL (1.7-4.1); Glucose 84 mg/dL (70-99); HDL Cholesterol 58 mg/dL (40-60); HEMOLYSIS < 15 (0-50); LDL Cholesterol Calculated 155 mg/dL (<100); Potassium 4.3 mmol/L (3.4-5.1); Sodium 139 mmol/L (137-145); Total Protein 7.6 g/dL (6.3-8.2); Triglycerides 282 mg/dL (35-150)
[2025-02-23 16:03] LABS: TSH w/ Reflex to FT4 4.16 uIU/mL (0.47-4.68)
== END ==
PROVIDERS: PCP Registered Nurse Diabetes Educator; Referring Provider Registered Nurse Diabetes Educator; Visit Provider Registered Nurse Diabetes Educator
DX: Z00.00 Encounter for general adult medical examination without abnormal findings (principal); E78.5 Hyperlipidemia, unspecified; R03.0 Elevated blood-pressure reading, without diagnosis of hypertension
CPT/HCPCS: 36415; 80053; 80061; 84443; 85027

== ENCOUNTER → 2025-04-02 07:56 | Outpatient (CLI) | payer OTHER, SELFPAY ==
--- NOTE | 2025-04-02 07:57 | DI.MG.S_ITS ---
MM screening mammo BI: 04/02/2025. BI-RADS: 2 CLINICAL: 59-year old female for bilateral screening mammogram. Tyrer-Cuzick lifetime risk of 13.8%. Current reported family history of breast cancer: sister. PRIOR EXAMS 09/01/2023, 08/20/2022, 06/20/2019. MAMMOGRAPHY TECHNIQUE: 2D and 3D (tomosynthesis) digital mammographic views obtained, with additional images as needed for full coverage. Current study was also evaluated with a Computer Aided Detection (CAD) system. DENSITY B. There are scattered areas of fibroglandular density. MAMMOGRAPHY FINDINGS Right: Typically-benign vascular calcifications noted. No significant change from comparison. Left: Biopsy marker present on the left. Typically-benign vascular calcifications noted. No significant change from comparison. IMPRESSION: * No evidence of malignancy with benign findings. RECOMMENDATIONS Bilateral * Annual screening mammography. OVERALL ASSESSMENT CATEGORY BI-RADS-2: Benign. The [employer] [place] [employer] [employer] recommends annual screening mammography beginning at age 40 for women with average risk of breast cancer. ELECTRONICALLY SIGNED: Shashank Iraheta M.D. on 04/02/2025 at 03:35:20 PM PT Interpreting Station ID: [id number]
== END ==
LOC: MAMMO 07:56
PROVIDERS: PCP Registered Nurse Diabetes Educator; Referring Provider Registered Nurse Diabetes Educator; Visit Provider Registered Nurse Diabetes Educator
DX: Z12.31 Encounter for screening mammogram for malignant neoplasm of breast (principal); Z80.3 Family history of malignant neoplasm of breast
CPT/HCPCS: 77063; 77067

== ENCOUNTER → 2025-07-04 09:17 | Outpatient (CLI) | payer OTHER, SELFPAY ==
[2025-07-04 11:31] LABS: Cholesterol 267 mg/dL (140-199); HDL Cholesterol 74 mg/dL (40-60); Triglycerides 185 mg/dL (35-150)
== END ==
PROVIDERS: PCP Registered Nurse Diabetes Educator; Referring Provider Registered Nurse Diabetes Educator; Visit Provider Registered Nurse Diabetes Educator
DX: E78.5 Hyperlipidemia, unspecified (principal)
CPT/HCPCS: 36415; 80061